=== PATIENT | female | born 1985 | race Caucasian/White ===

== ENCOUNTER 2018-04-13 05:31 | Emergency (ER) | payer OTHER, SELFPAY ==
[2018-04-13 05:31] VITALS: BP 113/72; PULSE 72; RESP 16; TEMP 37.1; O2SAT 100; BMI 23.5
--- NOTE | 2018-04-13 05:53 | ED.VIS.GEN ---
History of Present Illness Chief Complaint: Back Informant: Patient Onset: Today Context: Gradual Onset Timing: Continuous Quality: sore/ache Location: low back and both trapezius' Current Severity: Moderate Maximum Severity: Severe - when locks up Worsened by: certain movements Relieved by: remaining still Associated Symptoms: muscle spasms Narrative: 2 days ago, she tripped over a been at work, landing on her right side and partially twisted, catching herself on her hands. 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 Now it is bilateral, started on her right side. No radiation down her lower extremities, no bowel or bladder dysfunction or saddle anesthesia. Past Medical History - Allergies and Home Meds Allergies/Adverse Reactions: Allergies No Known Allergies Allergy (Verified 04/13/18 05:37) Primary Care Physician: Anaid Palma PA [Primary Care Provider] - Past Medical History: None Smoking Status: Never smoker Review of Systems Genitourinary: Reports: - - No urinary or bowel incontinence or retention. Denies: Dysuria, Hematuria, Frequency Musculoskeletal: Reports: Neck pain, Back pain. Denies: Swelling, Extremity Pain Skin: Denies: Rash, Wounds Neurological: Denies: Headache, Weakness, Parasthesia Physical Exam Vital Signs/Narrative: Vital Signs Temp Pulse Resp BP Pulse Ox 04/13/18 05:31 98.7 F 72 16 113/72 100 Inital Vital Signs reviewed: Yes General: Well nourished, Well developed, - - Well-appearing, NAD Head: Normocephalic, Atraumatic Neck: Supple, - - Bilateral trapezius tenderness. No cervical spinal tenderness. Back: Normal Inspection, - - Bilateral paraspinal lumbosacral tenderness. Also some mild tenderness in the area of the rhomboids. No midline tenderness.. Negative for: Spinal tenderness Extremities: Nontender, No edema, - - Full range of motion throughout Skin: Normal color, No rash Neurological: Alert, Oriented x3, Cranial nerves II-XII grossly intact, Normal Strength, Normal Sensation, Normal Gait - Although antalgic Psychological: Normal affect Diagnostic/Tx/Re-eval - Medical Decision Making No x-rays indicated. Consistent with a lumbosacral strain, I do not know if she strained her upper back/neck as well, I think it is more likely just sore from overuse, she is in agreement. We will prescribe her some muscle relaxers, she is given treatment here but without muscle relaxers because she needs to drive her children this morning. Otherwise, [id number]-[id number] NSAIDs. ED Disposition - Plan for ED Patient: Disposition: Home or Assisted Living Chief Complaint: Back Diagnosis: Acute lumbosacral myofascial strain Instructions: ED Sprain Strain Lumbar Prescriptions: Cyclobenzaprine [Flexeril] 10 mg PO TID PRN #20 tab PRN Reason: Muscle Spasm Referrals: [facility] [GROUP OF PHYSICIANS] - (1-3 days, call for appt)
--- NOTE | 2018-04-13 06:25 | ED.RN ---
PATIENT TOOK A TOTAL OF 9 IBUPROFEN AND TWO REGULAR ASPRIN DURING THE NIGHT SO I DID NOT GIVE THE TORADOL. DR. CESAR AWARE AND DISCONTINUED THE MEDICATION. THIS NURSE DISCUSSED SAFE MEDICATION PRACTICES RELATED TO NSAIDS.
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
== END 2018-04-13 06:46 | disposition home or self-care (01) ==
LOC: ED 06:05
PROVIDERS: Emergency Provider Emergency Medicine
DX: S39.012A Strain of muscle, fascia and tendon of lower back, initial encounter (principal); M54.2 Cervicalgia; W18.09XA Striking against other object with subsequent fall, initial encounter; Y93.9 Activity, unspecified; Y92.9 Unspecified place or not applicable
CPT/HCPCS: 99282

== ENCOUNTER 2018-06-17 09:05 | Emergency (ER) | payer BC, SELFPAY ==
[2018-06-17 09:07] VITALS: BP 111/83; PULSE 96; RESP 18; TEMP 36.9; O2SAT 99; BMI 23.5
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
--- NOTE | 2018-06-17 09:23 | ED.RN ---
PT REFUSES TO STAY IN HER ASSIGNED ROOM. PT AMBULATES IN SON'S ED ROOM.
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
== END 2018-06-17 10:08 | disposition home or self-care (01) ==
LOC: ED 09:58
PROVIDERS: Emergency Provider Emergency Medicine
DX: S20.211A Contusion of right front wall of thorax, initial encounter (principal); S70.02XA Contusion of left hip, initial encounter; V89.2XXA Person injured in unspecified motor-vehicle accident, traffic, initial encounter; Y93.9 Activity, unspecified; Y92.9 Unspecified place or not applicable; Z72.0 Tobacco use
CPT/HCPCS: 71046; 72170; 99284

== ENCOUNTER 2020-08-22 14:30 | Emergency (ER) | payer MEDICAID, SELFPAY ==
[2020-08-07 14:13] VITALS: BMI 23.5
[2020-08-22 14:31] VITALS: BP 139/93; PULSE 115; RESP 18; TEMP 36.1; O2SAT 100; BMI 25.8
--- NOTE | 2020-08-22 14:43 | RAD_ITS ---
STUDY: X-RAY - LEFT HAND REASON FOR EXAM: Female, 35 years old. Bites TECHNIQUE: 3 view(s) of the hand. COMPARISON: None. FINDINGS: Normal radiocarpal articulation. Normal distal radioulnar joint. Normal visualized carpal bones. Normal carpal articulations Normal carpometacarpal articulation of the thumb. Normal second through fifth carpometacarpal joints. Normal metacarpi. Normal metacarpophalangeal joint of the thumb. Normal interphalangeal joint of the thumb. Normal proximal and distal phalanges of the thumb. Normal metacarpophalangeal joints of the second through fifth fingers. Normal proximal and distal interphalangeal joints of the second through fifth fingers. Normal phalanges of the second through fifth fingers. The soft tissue structures are unremarkable. RAD/Hand Min 3 Views IMPRESSION: Normal x-ray examination of the hand. Electronically Signed: Diego Higuera DO at 16:18 EDT Tel [phone], Service support ,
--- NOTE | 2020-08-22 14:43 | RAD_ITS ---
STUDY: X-RAY - LEFT WRIST REASON FOR EXAM: Female, 35 years old. Bites TECHNIQUE: 3 view(s) of the wrist were obtained. COMPARISON: None. FINDINGS: Normal visualized distal radius and ulna. Normal radiocarpal articulation. Normal distal radioulnar articulation. Normal carpal bones. Normal carpal articulations. Normal carpometacarpal articulation of the thumb. Normal second through fifth carpometacarpal articulations. Normal visualized metacarpal bones. The soft tissue structures are unremarkable. No radiopaque foreign body. RAD/Wrist min 3 Views IMPRESSION: Normal x-ray examination of the wrist. Electronically Signed: Diego Higuera DO at 16:16 EDT Tel [phone], Service support ,
--- NOTE | 2020-08-22 14:43 | RAD_ITS ---
STUDY: X-RAY - RIGHT WRIST REASON FOR EXAM: Female, 35 years old. Bites TECHNIQUE: 3 view(s) of the wrist were obtained. COMPARISON: None. FINDINGS: Normal visualized distal radius and ulna. Normal radiocarpal articulation. Normal distal radioulnar articulation. Normal carpal bones. Normal carpal articulations. Normal carpometacarpal articulation of the thumb. Normal second through fifth carpometacarpal articulations. Normal visualized metacarpal bones. The soft tissue structures are unremarkable. RAD/Wrist min 3 Views IMPRESSION: Normal x-ray examination of the wrist. Electronically Signed: Diego Higuera DO at 16:19 EDT Tel [phone], Service support ,
[2020-08-22] MEDS: Amox/Clavulanate 875 MG Tablet PO (15:06)
--- NOTE | 2020-08-22 16:29 | ED.DCSUM_ITS ---
History of Present Illness Chief Complaint: Bite Informant: Patient Onset: Today Current Severity: Moderate Maximum Severity: Moderate Narrative: Patient presents with dog bites to the left hand and both wrists. Patient states she noted a small dog in the middle of the road. She did not wanted to get hit so she stopped to help it. When she grabbed its collar it turned and bit her. She grabbed a second time and it bit her other hand. Patient reports her tetanus is up-to-date. Past Medical History - Allergies and Home Meds Allergies/Adverse Reactions: Allergies No Known Allergies Allergy (Verified 08/22/20 14:30) Primary Care Physician: Elana Felix DO [NON-STAFF] - As Needed Prior records reviewed: Yes Smoking Status: Current every day smoker Review of Systems General: Denies: Chills, Fever Eyes: Denies: Visual changes - bilaterally ENT: Denies: Bilateral ear pain Cardiovascular: Denies: Chest pain Respiratory: Denies: Dyspnea, Cough Gastrointestinal: Denies: Abdominal pain Musculoskeletal: Reports: Extremity Pain Skin: Reports: Wounds Neurological: Denies: Headache, Parasthesia, Numbness Hematologic: Denies: Easy bruising, Easy bleeding Allergy: Denies: Uticaria Physical Exam Vital Signs/Narrative: Vital Signs Temp Pulse Resp BP Pulse Ox 08/22/20 14:31 97 F L 115 H 18 139/93 H 100 Inital Vital Signs reviewed: Yes General: Well nourished, Well developed Head: Normocephalic Neck: Supple Cardiovascular: Regular rate, Regular rhythm Respiratory: No distress, CTA bilaterally Abdomen: Soft, Nontender Extremities: - - Patient has 4 linear superficial lacerations to the right wrist. 5 mm in greatest length. No active bleeding. Patient has approximately 11 small superficial lacerations to the left wrist and hand. No significant active bleeding. Full range of motion of all digits. Neurological: Alert, Oriented x3, Normal Strength, Normal Sensation Psychological: Normal affect Diagnostic/Tx/Re-eval Impressions Hand X-Ray 08/22/20 14:43 IMPRESSION: Normal x-ray examination of the hand. Electronically Signed: Diego Higuera DO at 16:18 EDT Tel [phone], Service support , Wrist X-Ray 08/22/20 14:43 IMPRESSION: Normal x-ray examination of the wrist. Electronically Signed: Diego Higuera DO at 16:19 EDT Tel [phone], Service support , 08/22/20 14:43 Hand Min 3 Views [RAD] Stat Wrist min 3 Views [RAD] Stat Wrist min 3 Views [RAD] Stat - Medical Decision Making Patient was given a dose of Augmentin here. She took some of her own naproxen for pain. Hands were soaked and wounds dressed. X-rays of the bilateral wrist and left hand revealed no evidence of foreign body. Patient be given Augmentin along with some [place] for breakthrough pain. Patient referred to Dr. Felix, derrick doctor on no doc list for follow-up as needed. ED Disposition - Plan for ED Patient: Disposition: Home or Assisted Living Diagnosis: Dog bite Instructions: ED Dog Bite Prescriptions: Amox/Clavulanate Tablet [Augmentin Tablet] 875 mg PO Q12H #7 tab Transmission Status: Pending to [id number] Hydrocodone Bitart/Apap 5-325 [[place] 5MG-325MG] 1 tablet PO Q6H PRN PRN 3 Days #10 tab PRN Reason: Pain Transmission Status: Received by [id number] Referrals: Elana Felix DO [NON-STAFF] - As Needed
== END 2020-08-22 16:45 | disposition home or self-care (01) ==
PROVIDERS: Emergency Provider Emergency Medicine
DX: S60.572A Other superficial bite of hand of left hand, initial encounter (principal); S60.872A Other superficial bite of left wrist, initial encounter; S60.871A Other superficial bite of right wrist, initial encounter; W54.0XXA Bitten by dog, initial encounter; Y93.9 Activity, unspecified; Y92.9 Unspecified place or not applicable; F17.200 Nicotine dependence, unspecified, uncomplicated
CPT/HCPCS: 73110; 73130; 99283

== ENCOUNTER → 2024-06-10 | Outpatient (CLI) | payer OTHER, SELFPAY ==
--- NOTE | 2024-06-10 09:53 | RAD_ITS ---
PROCEDURE: HAND MIN 3 VIEWS REASON FOR EXAM: Pain following injury. TECHNIQUE: 3 views of the left hand COMPARISON: None FINDINGS: No visible fracture. No suspicious bone lesion. Normal alignment. Soft tissues are unremarkable. RAD/Hand Min 3 Views IMPRESSION: NEGATIVE HAND SERIES Reading Location: [place] [id number]
== END | disposition home or self-care (01) ==
PROVIDERS: Referring Provider Physician Assistant Surgical; Visit Provider Physician Assistant Surgical
DX: S69.92XA Unspecified injury of left wrist, hand and finger(s), initial encounter (principal); X58.XXXD Exposure to other specified factors, subsequent encounter
CPT/HCPCS: 73130